=== PATIENT | male | born 1975 | race Caucasian/White ===

== ENCOUNTER 2020-10-04 01:28 | Emergency (ER) | payer BC ==
[~2020-10-04] VITALS: Ht 177.8 cm; Wt 100.0 kg
[~2020-10-04 01:28] MED LIST: PANT40TA54 PO
[2020-10-04] MEDS ORDERED: ketorolac trometh inj. 60 MG/2 ML VIAL IM ONE (01:55)
[2020-10-04] MEDS ORDERED: diazepam 5mg tablet PO ONE (01:55)
--- NOTE | 2020-10-04 01:59 | NUR ---
Pt states pain to right shoulder that feels like a knot in his muscle that began yesterday. 9/10 sharp when inspiration
--- NOTE | 2020-10-04 03:00 | NUR ---
pt sleeping at this time, [id number]
[2020-10-04] MEDS ORDERED: HYDROcodone/acetaminophen 5mg/325mg tablet PO ONE (03:10)
[2020-10-04] MEDS ORDERED: DIAZ5TAB PO (03:13)
[2020-10-04] MEDS ORDERED: MELO-100 PO (03:13)
[2020-10-04 03:30] VITALS: BP 172/109
== END 2020-10-04 03:34 | disposition home or self-care (01) ==
LOC: ER 01:29
DX: M25.511 Pain in right shoulder (principal); G89.29 Other chronic pain; F17.200 Nicotine dependence, unspecified, uncomplicated; Z90.49 Acquired absence of other specified parts of digestive tract; Z79.899 Other long term (current) drug therapy
CPT/HCPCS: 96372; 99283; J1885